=== PATIENT | female | born 1950 | race Caucasian/White ===

== ENCOUNTER 2017-08-22 14:44 | Observation (INO) | payer BC, MEDICARE ==
[2017-08-22] MEDS ORDERED: Ticagrelor 90 MG Tab PO ONE (14:51)
[2017-08-22] MEDS ORDERED: Famotidine 20 MG/2 ML SDV IVPUSH ONE (14:51)
[2017-08-22] MEDS ORDERED: Aspirin 81 MG Tab.Chew CHEW ONE (14:51)
--- NOTE | 2017-08-22 14:51 | EDM.PDOC ---
ED HPI GENERAL MEDICAL PROBLEM - General Chief Complaint: Chest Pain Stated Complaint: chest pain Time Seen by Provider: 08/22/17 14:45 Source of Information: Reports: Patient, Family (), Old Records ([facility] chart/EMR) History Limitations: Reports: No Limitations - History of Present Illness INITIAL COMMENTS - FREE TEXT/NARRATIVE: The patient was brought to the emergency room via private automobile by her for evaluation of intermittent 8/10 left-sided chest pressure with radiation to the left shoulder and arm with symptoms present over the last week and usually occurring on a daily basis lasting for several hours. She also has intermittent 4/10 right upper quadrant abdominal pain during the same time. With symptoms improved with OTC Gas-X. She denies any abdominal pain at this time. The patient was briefly evaluated by her regular provider, Ever Henley PA-C, at the [facility] in [place], earlier this afternoon with EKG conducted in that clinic, however no other medications, treatment, etc. were conducted. The patient denies any heart flutter, dizziness, orthostasis, orthopnea, diaphoresis, paresthesias, recent decreased exercise tolerance, or any other anginal-type symptoms. No recent history of other abdominal pain, heartburn, nausea, diarrhea, melena, gross hematochezia, or any food intolerance , including fatty foods, etc.. The patient also denies any recent fever, cough, wheezing, dyspnea, etc.. Her blood pressure has been under moderate control recently. No history of recent headaches, visual changes, diplopia, change in mental status, or other change in neurological status. Her Accu-Cheks have been under somewhat moderate control with a.m. Accu-Cheks averaging in the 160s and p.m. Accu-Cheks in the 90s to 110s Onset: Gradual Duration: Intermittent Location: Reports: Chest, Abdomen, Upper Extremity, Left, Radiates to (As above) . Denies: Head, Face, Neck, Back, Upper Extremity, Right, Lower Extremity, Left , Lower Extremity, Right Quality: Reports: Pressure, Same as Previous Episode Severity: Moderate Improves with: Reports: None Worsens with: Reports: None Context: Reports: Other (As above) Associated Symptoms: Reports: Chest Pain. Denies: Confusion, Cough, Diaphoresis , Fever/Chills, Headaches, Loss of Appetite, Malaise, Nausea/Vomiting, Rash, Seizure, Shortness of Breath, Syncope, Weakness Treatments PATHOLOGY TECH: Reports: Other (see below) (None) chest pain Pain Score (Numeric/FACES): 4 (With earlier 8 pain as above) - Related Data Allergies Allergy/AdvReac Type Severity Reaction Status Date / Time adhesive tape Allergy Rash Verified 08/22/17 15:15 codeine Allergy Difficulty Verified 08/22/17 15:15 Breathing pesticide Allergy Anaphylactic Verified 08/22/17 15:15 Shock pravastatin Allergy Muscle Verified 08/22/17 15:15 Aches silver Allergy Rash Verified 08/22/17 15:15 [From Tegaderm AG Mesh] simvastatin Allergy Muscle Verified 08/22/17 15:15 Aches Veycqun-Ben-Hym Reductase Allergy Muscle Verified 08/22/17 15:15 Inhibitor Aches tegaderm Allergy Rash Uncoded 08/22/17 15:15 Home Meds: Home Meds Cholecalciferol (Vitamin D3) [D-2000] 2,000 unit PO QAM 06/07/17 [History] Fenofibrate [Fenofibrate] 160 mg PO QPM 06/07/17 [History] Insulin Aspart [NovoLOG] 5 unit SQ QPM 06/07/17 [History] Insulin Detemir [Levemir] 25 unit SQ BEDTIME 06/07/17 [History] Lactobacillus Acidophilus [Probiotic Acidophilus] 1 each PO QAM 06/07/17 [ History] Levothyroxine [Levothyroxine] 25 mcg PO QAM 06/07/17 [History] [place]-3/DHA/Epa/Fish Oil [[place] 3 500 Softgel] 1 each PO QAM 06/07/17 [History] Red Yeast Rice Extract [Red Yeast Rice] 30 gm MC QAM 06/07/17 [History] Vitamin B Complex [B Complex] 1 each PO QAM 06/07/17 [History] amLODIPine Besylate [Amlodipine Besylate] 10 mg PO BEDTIME 06/07/17 [History] metFORMIN HCl [Metformin HCl] 1 tab PO BID@0800,1800 06/07/17 [History] Aspirin [Halfprin] 81 mg PO QAM 08/22/17 [History] Non-Formulary Medication [NF Drug] 1 each PO DAILY@1200 08/22/17 [History] Ubidecarenone [Co Q-10] 100 mg PO QAM 08/22/17 [History] Past Medical History HEENT History: Reports: Cataract, Other (See Below). Denies: Allergic Rhinitis , Glaucoma, Hard of Hearing, Macular Degeneration, Retinal Detachment Other HEENT History: Reading glasses Cardiovascular History: Reports: Heart Murmur, High Cholesterol, Hypertension, Other (See Below). Denies: Afib, Aneurysm, Arrhythmia, Blood Clots/VTE/DVT, CAD , Cardiomyopathy, Heart Failure, NE, PVD, Syncope Other Cardiovascular History: Hyperlipidemia including severe hypertriglyceridemia secondary fatty liver. Intermittent benign functional murmur. Varicose veins Respiratory History: Reports: COPD, Intubation, Previous. Denies: Asthma, Intubation, Difficult, PE, Pneumothorax, Pulmonary Fibrosis, Sleep Apnea, TB Gastrointestinal History: Reports: Cholelithiasis, Other (See Below). Denies: Celiac Disease, Chronic Constipation, Chronic Diarrhea, Colon Polyp, Diverticulosis, Fecal Incontinence, Gastritis, GERD, GI Bleed, Hepatitis, Hiatal Hernia, Inflammatory Bowel Disease, Irritable Bowel Syndrome, Jaundice, Pancreatitis, PUD Other Gastrointestinal History: Fatty liver secondary to hyperlipidemia Genitourinary History: Reports: Urinary Incontinence. Denies: Acute Renal Failure, Chronic Renal Insuffiency, Renal Calculus, STD, UTI, Recurrent GEOGRAPHIC INFORMATION SYSTEMS MANAGER History: Reports: Endometriosis, , Other (See Below) (Elective SAB during first trimester with delivery at 26 weeks gestation with final with no problems with hypertension or gestational diabetes during her or delivery). Denies: Dysfunctional Uterine Bleeding, Fibroids : 3 Para: 1 LMP (Approximate): Menopausal (Menopause in her early 50s) Musculoskeletal History: Reports: Arthritis, Back Pain, Chronic, Fracture, Neck Pain, Chronic, Osteoarthritis, Osteoporosis, Other (See Below). Denies: Amputation, Gout, RA, SLE Other Musculoskeletal History: Left proximal femur fracture at age 13 not requiring surgery Neurological History: Reports: Neuropathy, Diabetic, Neuropathy, Peripheral. Denies: Cerebral Aneurysms, CVA, Headaches, Chronic, Migraines, MS, Parkinson's , Seizure, TIA Psychiatric History: Reports: ADHD, Addiction, Other (See Below). Denies: Abuse , Victim of, Anxiety, Depression, Psych Hospitalization(s), PTSD, Suicide Attempt, Suicidal Ideation Other Psychiatric History: Previous tobacco, alcohol, and illicit drug use as below Endocrine/Metabolic History: Reports: Diabetes, Type II, Hypothyroidism, IDDM, Osteopenia, Osteoporosis. Denies: Diabetes, Type I, Diabetes Mellitus, Type 3c Hematologic History: Reports: None. Denies: Anemia, Blood Transfusion(s), Iron Deficiency Immunologic History: Reports: None. Denies: AIDS, HIV, SLE Oncologic (Cancer) History: Reports: Breast, Malignant Melanoma, Other (See Below). Denies: Basal Cell Carcinoma, Hodgkin's Lymphoma, Leukemia, Lymphoma, Metastatic, Non-Hodgkin's Lymphoma, Ovarian, Squamous Cell Carcinoma, Uterine Other Oncologic History: Right-sided stage I breast cancer in 2006 with subsequent radiation therapy. Melanoma of the left medial supra-labial region with excision as below Dermatologic History: Reports: Melanoma (As above). Denies: Eczema, Psoriasis - Infectious Disease History Infectious Disease History: Reports: Chicken Pox, Measles, Mumps (2). Denies: C-Difficile, Meningitis, Mononucleosis, MRSA, Pertussis (Whooping Cough), Rheumatic Fever, Rubella, Scarlet Fever, Shingles, TB, VRE - Past Surgical History Head Surgeries/Procedures: Reports: None HEENT Surgical History: Reports: Cataract Surgery, Oral Surgery, Tonsillectomy, Other (See Below). Denies: Adenoidectomy, Laser Surgery, LASIK, Naso-Sinus Surgery Other HEENT Surgeries/Procedures: Tonsillectomy at age 19. Bilateral cataract surgery in about 2008 Cardiovascular Surgical History: Reports: None. Denies: Varicose Respiratory Surgical History: Reports: None. Denies: Thoracentesis GI Surgical History: Reports: Cholecystectomy, Other (See Below). Denies: Appendectomy, Colon, EGD, Hernia, Abdominal, Hernia, Inguinal, Hernia Repair/ Other Other GI Surgeries/Procedures: Laparoscopic cholecystectomy on 03/28/07 Female Surgical History: Reports: Breast Biopsy, D&C, Dilitation & Evacuation , Other (See Below). Denies: Hysterectomy, Oophorectomy, Salpingo-Oophorectomy , Tubal Ligation Other Female Surgeries/Procedures: D&C secondary to elective SABs 2 vessels above. Left-sided lumpectomy secondary to breast cancer in 2006 Endocrine Surgical History: Reports: None. Denies: Thyroid Biopsy Neurological Surgical History: Reports: None. Denies: C-Spine, Discectomy, Laminectomy, Lumbar Spine, Sacral Spine, Spinal Fusion, Vertebroplasty Musculoskeletal Surgical History: Reports: None. Denies: Arthroscopic Procedure , Carpal Tunnel, Ganglion Cyst, Joint Replacement, ORIF, Shoulder Surgery Oncologic Surgical History: Reports: Biopsy of Breast (As above), Lumpectomy ( As above) Dermatological Surgical History: Reports: None - Past Imaging History Past Imaging History: Reports: DEXA Scan (09/20/11), MRI (C-spine on 07/06/08), Ultrasound (Right upper quadrant on 03/15/07) Social & Family History - Family History HEENT: Reports: Macular Degeneration, Other (See Below). Denies: Glaucoma, Retinal Detachment Other HEENT Family History: Maternal aunt with macular degeneration Cardiac: Reports: CAD, Congenital Septal Defect, Heart Failure, High Cholesterol , Hypertension, NE, Stent, Other (See Below). Denies: Afib, Aneurysm, Arrhythmia, Blood Clots/VTE/DVT, Bypass, PVD/COD, Syncope Other Cardiac Family History: Father with unknown type of congenital heart defect with initial NE at age 36 and fatal NE and CHF at age 42 with no heart procedures performed. Sister with NE at age 61 with PTCA/stent 2. Hypertension in brother. Hyperlipidemia in brother and sister Respiratory: Reports: None. Denies: Asthma, COPD, PE, Pneumothorax, Sleep Apnea GI: Reports: None. Denies: Celiac Disease, Cholelithiasis, Colon Polyps, GERD, GI bleed, Hepatitis, Inflammatory Bowel Disease, Irritable Bowel Syndrome, Pancreatitis, PUD OBGYN: Reports: None. Denies: Dysfunctional uterine bleeding, Endometriosis, Fibroids Musculoskeletal: Reports: None. Denies: Arthritis, Gout, Osteoarthritis, RA, SLE Neurological: Reports: None. Denies: Alzheimers Disease, Cerebral Aneurysms, CVA, Dementia, Migraines, MS, Neuropathy, Diabetic, Neuropathy, Peripheral, Parkinson's, Seizure, TIA Psychiatric: Reports: None. Denies: Abuse, Victim of, ADD, ADHD, Anxiety, Depression, Psych Hospitalization(s), PTSD, Suicide Attempt Endocrine/Metabolic: Reports: Diabetes, type II, Other (See Below) Other Endocrine/Metabolic Family History: Brother and sister with diabetes mellitus Hematologic: Reports: None. Denies: Anemia, Transfusion Reaction Immunologic: Reports: None. Denies: AIDS, HIV, SLE Dermatologic: Reports: None. Denies: Angiodema, Eczema, Psoriasis Oncologic: Reports: Breast, Other (See Below). Denies: Cervix, Colon, Hodgkin' s Lymphoma, Leukemia, Lymphoma, Metastatic, Non-Hodgkin's Lymphoma, Ovarian, Skin, Uterine Other Oncologic Family History: Mother with fatal breast cancer at age 72 - Tobacco Use Smoking Status *Q: Former Smoker Tobacco Use Within Last Twelve Months: No Years of Tobacco use: 30 Packs/Tins Daily: 1 (She smoked between 12 packs per day with occasional cigar use between ages 19 and 49) Used Tobacco, but Quit: No Smoking Cessation Information Provided To Patient: No Second Hand Smoke Exposure: No Second Hand Smoke Education Provided: No - Caffeine Use Caffeine Use: Reports: Coffee (2 cups per day), Tea (6 glasses per day). Denies : Energy Drinks, Soda - Alcohol Use Alcohol Use History: Yes Days Per Week of Alcohol Use: 0 (Previous history of alcohol abuse with no treatment required) Alcohol Use in Last Twelve Months: No - Recreational Drug Use Recreational Drug Type: Reports: Amphetamines (Speed) (Between ages 19 and 25), Marijuana/Hashish (Usually on weekends between ages 19 and 33), Methamphetamine. Denies: Cocaine, Heroin, Inhalants (Glues, Solvents, Aerosols) , LSD (Acid), Morphine, Oxycodone Recreational Drug Route: Reports: Inhaled - Living Situation & Occupation Living situation: Reports: (1985, 1 child), with Family () Occupation: Retired (Various odd jobs. Retired at age 61) ED ROS GENERAL - Review of Systems Review Of Systems: See Below Constitutional: Reports: No Symptoms. Denies: Fever, Chills, Malaise, Weakness , Fatigue, Night Sweats, Diaphoresis, Decreased Appetite, Weight Loss, Weight Gain HEENT: Reports: Glasses. Denies: Contact Lenses, Dental Pain, Ear Discharge, Ear Pain, Eye Pain, Hearing Loss, Rhinitis, Sinus Problem, Throat Pain, Throat Swelling, Vertigo, Vision Change Respiratory: Reports: No Symptoms. Denies: Shortness of Breath, Wheezing, Pleuritic Chest Pain, Cough, Hemoptysis Cardiovascular: Reports: Chest Pain, Blood Pressure Problem. Denies: Claudication, Dyspnea on Exertion, Edema, Lightheadedness, Orthopnea, Palpitations, PND, Syncope Endocrine: Reports: High Glucose (Occasional). Denies: Fatigue GI/Abdominal: Reports: Abdominal Pain (Right upper quadrant as above). Denies: Anorexia, Black Stool, Bloody Stool, Constipation, Diarrhea, Decreased Appetite , Difficulty Swallowing, Distension, Flatus, Hematemesis, Hematochezia, Melena, Mucous in Stool, Nausea, Stool Incontinence, Vomiting : Reports: Incontinence. Denies: Discharge, Dysuria, Flank Pain, Frequency, Hematuria, Irregular Menses, Pain, Urgency, Urinary Retention Musculoskeletal: Reports: No Symptoms. Denies: Neck Pain, Shoulder Pain, Arm Pain, Back Pain, Leg Pain Skin: Reports: No Symptoms. Denies: Diaphoresis, Bruising, Wound Neurological: Reports: No Symptoms. Denies: Confusion, Dizziness, Headache, Numbness, Paresthesia, Seizure, Tingling, Weakness Psychiatric: Reports: No Symptoms. Denies: Agitation, Anxiety, Confusion, Depression, Hallucinations, Homicidal Ideation, Suicidal Ideation Hematologic/Lymphatic: Reports: No Symptoms Immunologic: Reports: No Symptoms ED EXAM, GENERAL - Physical Exam Exam: See Below Exam Limited By: No Limitations General Appearance: Alert, WD/WN, No Apparent Distress, Anxious (Mild) Eye Exam: Bilateral Eye: EOMI, Normal Fundi, Normal Inspection (No nystagmus), PERRL Ears: Normal External Exam, Normal Canal, Hearing Grossly Normal, Normal TMs Nose: Normal Inspection, Normal Mucosa, No Blood Throat/Mouth: Normal Lips. No: Normal Teeth (Complete dentures uppers and lowers), Normal Gums, Normal Oropharynx, Normal Voice, No Airway Compromise, Dysphagia, Perioral Cyanosis Head: Atraumatic, Normocephalic. No: Facial Swelling, Facial Tenderness, Sinus Tenderness Neck: Normal Inspection, Supple, Non-Tender, Full Range of Motion. No: Carotid Bruit, Lymphadenopathy (L), Lymphadenopathy (R), Thyromegaly Respiratory/Chest: No Respiratory Distress, Lungs Clear, Normal Breath Sounds, No Accessory Muscle Use, Chest Non-Tender. No: Pleural Rub, Retractions Cardiovascular: Normal Peripheral Pulses, Regular Rate, Rhythm, No Edema, No Gallop, No JVD, No Murmur, No Rub. No: Gallop/S3, Gallop/S4, Friction Rub Peripheral Pulses: 2+: Radial (L), Radial (R), Dorsalis Pedis (L), Dorsalis Pedis (R) GI/Abdominal: Normal Bowel Sounds, Soft, Non-Tender, No Organomegaly, No Distention, No Abnormal Bruit, No Mass, Pelvis Stable. No: Guarding (Female) Exam: Deferred Rectal (Female) Exam: Deferred Back Exam: Normal Inspection, Full Range of Motion. No: CVA Tenderness (L), CVA Tenderness (R), Muscle Spasm Extremities: Normal Inspection, Normal Range of Motion, Non-Tender, No Pedal Edema, Normal Capillary Refill. No: Enrico's Sign Neurological: Alert, Oriented, CN II-XII Intact, Normal Cognition, Normal Gait, Normal Reflexes (Negative Babinski's), No Motor/Sensory Deficits Psychiatric: Anxious (Borderline). No: Depressed Mood Skin Exam: Warm, Dry, Intact, Normal Color, No Rash. No: Diaphoretic, Wound/ Incision Lymphatic: No Adenopathy EKG INTERPRETATION EKG Date: 08/22/17 Time: 14:06 Rhythm: Other (Sinus bradycardia) Rate (Beats/Min): 54 [place]: Normal (Left cardiac) P-Wave: Present QRS: Wide (0.11 seconds representing probable repolarization changes with mild T -wave inversions in leads V1 and V2) ST-T: Other (As above) QT: Normal MT/PQ Interval: 0.13 seconds representing a short MT interval with no delta waves noted with extreme poor R-wave progression in the anterior leads Comparison: NA - No Prior EKG EKG Interpretation Comments: 1. Borderline anterior wall cardiac ischemia 2. Short MT interval 3. Repolarization changes 4. Sinus bradycardia Course - Vital Signs Last Recorded V/S: Last Vital Signs Temp 37.0 C 08/22/17 15:23 Pulse 62 08/22/17 16:31 Resp 20 08/22/17 16:31 BP 165/79 H 08/22/17 16:31 Pulse Ox 99 08/22/17 16:31 Vital Signs - 24 hr 08/22/17 08/22/17 08/22/17 14:51 15:23 15:40 Temperature [ 37.0 C 37.0 C Oral] Pulse, 61 64 63 Peripheral [ Left Pulse Oximetry] Respiratory 20 19 20 Rate Blood Pressure [Left Upper Arm ] Blood Pressure 192/74 H 163/96 H 161/94 H [Right Upper Arm] O2 Sat by Pulse 95 97 98 Oximetry O2 Sat by Pulse 97 Oximetry [ Nasal Cannula] 08/22/17 08/22/17 08/22/17 16:12 16:13 16:31 Temperature [ Oral] Pulse, 63 67 62 Peripheral [ Left Pulse Oximetry] Respiratory 22 H 18 20 Rate Blood Pressure 165/79 H [Left Upper Arm ] Blood Pressure 179/82 H 180/95 H [Right Upper Arm] O2 Sat by Pulse 99 99 99 Oximetry O2 Sat by Pulse Oximetry [ Nasal Cannula] - Orders/Labs/Meds Orders: Active Orders 24 hr Category Date Time Status Blood Glucose Check, Bedside [RC] STAT Care 08/22/17 16:35 Active Cardiac Monitoring [RC] . DIRECTED Care 08/22/17 14:51 Active Oxygen Therapy, ED [RC] CONTINUOUS Care 08/22/17 14:51 Active Peripheral IV Care [RC] . DIRECTED Care 08/22/17 14:51 Active Pulse Oximetry [RC] CONTINUOUS Care 08/22/17 14:51 Active Up With Assistance [RC] PFP Care 08/22/17 14:51 Active Vital Signs [RC] PFP Care 08/22/17 14:51 Active Nothing per Oral Now Diet [DIET] Diet 08/22/17 Breakfast Active Chest 1V Frontal [CR] Stat Exams 08/22/17 14:51 Taken Sodium Chloride 0.9% [Saline Flush] Med 08/22/17 14:51 Active 10 ml FLUSH ASDIRECTED PRN Obtain Past Medical Record [OM.PC] Urgent Oth 08/22/17 14:51 Active Peripheral IV Insertion Adult [OM.PC] Stat Oth 08/22/17 14:51 Ordered Resuscitation Status Stat Resus Stat 08/22/17 14:51 Ordered Medication Orders Sodium Chloride (Saline Flush) 10 ml FLUSH ASDIRECTED PRN PRN Reason: Keep Vein Open Last Admin: 08/22/17 15:22 Dose: 10 ml Labs: Laboratory Tests 08/22/17 08/22/17 08/22/17 Range/Units 15:00 15:00 15:00 WBC 6.0 (4.0-10.2) K/uL RBC 4.83 (3.77-5.09) M/uL Hgb 14.2 (11.7-15.5) g/dL Hct 42.5 (34.0-46.0) % MCV 88.0 (84.0-98.0) fL MCH 29.4 (28.2-33.3) pg MCHC 33.4 (31.7-36.0) g/dL RDW 13.7 (11.2-14.1) % Plt Count 273 (150-350) K/uL Neut % (Auto) 43.5 L (45.0-80.0) % Lymph % (Auto) 44.3 (10.0-50.0) % [place] % (Auto) 7.8 (2.0-14.0) % Eos % (Auto) 3.7 (0.0-5.0) % Baso % (Auto) 0.7 (0.0-2.0) % Neut # (Auto) 2.61 (1.40-7.00) K/uL Lymph # (Auto) 2.66 (0.50-3.50) K/uL [place] # (Auto) 0.47 (0.00-1.00) K/uL Eos # (Auto) 0.22 (0.00-0.50) K/uL Baso # (Auto) 0.04 (0.00-0.20) K/uL PT 11.2 (9.8-11.7) SEC INR 1.0 APTT 21.0 L (22.1-29.8) SEC D-Dimer, Quantitative < 100 (0-400) ng/mL Sodium (136-145) mmol/L Potassium (3.5-5.1) mmol/L Chloride (98-107) mmol/L Carbon Dioxide (21.0-32.0) mmol/L BUN (7-18) mg/dL Creatinine (0.51-1.17) mg/dL Est Cr Clr Drug Dosing mL/min Estimated GFR (MDRD) mL/min Glucose (74-106) mg/dL POC Glucose (65-110) mg/dl Lactic Acid (0.4-2.0) mmol/L Uric Acid (2.6-7.2) mg/dL Calcium (8.5-10.1) mg/dL Magnesium (1.8-2.4) mg/dL Total Bilirubin (0.2-1.0) mg/dL AST (15-37) U/L ALT (12-78) U/L Alkaline Phosphatase (46-116) IU/L Creatine Kinase (26-308) U/L Creatine Kinase Index (0.0-2.5) % CK-MB (CK-2) (0.00-3.60) ng/mL Troponin I (0.000-0.056) ng/mL NT-Pro-B Natriuret Pep (0-125) pg/mL Total Protein (6.4-8.2) g/dL Albumin (3.4-5.0) g/dL TSH, Ultra Sensitive (0.358-3.740) mIU/mL 08/22/17 08/22/17 08/22/17 Range/Units 15:00 15:00 16:42 WBC (4.0-10.2) K/uL RBC (3.77-5.09) M/uL Hgb (11.7-15.5) g/dL Hct (34.0-46.0) % MCV (84.0-98.0) fL MCH (28.2-33.3) pg MCHC (31.7-36.0) g/dL RDW (11.2-14.1) % Plt Count (150-350) K/uL Neut % (Auto) (45.0-80.0) % Lymph % (Auto) (10.0-50.0) % [place] % (Auto) (2.0-14.0) % Eos % (Auto) (0.0-5.0) % Baso % (Auto) (0.0-2.0) % Neut # (Auto) (1.40-7.00) K/uL Lymph # (Auto) (0.50-3.50) K/uL [place] # (Auto) (0.00-1.00) K/uL Eos # (Auto) (0.00-0.50) K/uL Baso # (Auto) (0.00-0.20) K/uL PT (9.8-11.7) SEC INR APTT (22.1-29.8) SEC D-Dimer, Quantitative (0-400) ng/mL Sodium 141 (136-145) mmol/L Potassium 4.0 (3.5-5.1) mmol/L Chloride 104 (98-107) mmol/L Carbon Dioxide 23.8 (21.0-32.0) mmol/L BUN 21 H (7-18) mg/dL Creatinine 0.70 (0.51-1.17) mg/dL Est Cr Clr Drug Dosing 79.75 mL/min Estimated GFR (MDRD) > 60 mL/min Glucose 100 (74-106) mg/dL POC Glucose 108 (65-110) mg/dl Lactic Acid 1.4 (0.4-2.0) mmol/L Uric Acid 4.1 (2.6-7.2) mg/dL Calcium 10.0 (8.5-10.1) mg/dL Magnesium 1.9 (1.8-2.4) mg/dL Total Bilirubin 0.4 (0.2-1.0) mg/dL AST 23 (15-37) U/L ALT 29 (12-78) U/L Alkaline Phosphatase 42 L (46-116) IU/L Creatine Kinase 94 (26-308) U/L Creatine Kinase Index 1.2 (0.0-2.5) % CK-MB (CK-2) 1.10 (0.00-3.60) ng/mL Troponin I 0.000 (0.000-0.056) ng/mL NT-Pro-B Natriuret Pep 49 (0-125) pg/mL Total Protein 8.5 H (6.4-8.2) g/dL Albumin 4.7 (3.4-5.0) g/dL TSH, Ultra Sensitive 2.574 (0.358-3.740) mIU/mL Accu-Chek prior to arrival 108 mg percent Meds: Medications Generic Name Dose Route Start Last Admin Trade Name Freq PRN Reason Stop Dose Admin Sodium Chloride 10 ml 08/22/17 14:51 08/22/17 15:22 Saline Flush FLUSH 10 ml ASDIRECTED PRN Administration Keep Vein Open Discontinued Medications Generic Name Dose Route Start Last Admin Trade Name Freq PRN Reason Stop Dose Admin Aspirin 324 mg 08/22/17 14:51 08/22/17 15:20 Aspirin CHEW 08/22/17 14:52 324 mg ONETIME ONE Administration Famotidine 40 mg 08/22/17 14:51 08/22/17 15:21 Pepcid IVPUSH 08/22/17 14:52 40 mg ONETIME ONE Administration Ticagrelor 180 mg 08/22/17 14:51 08/22/17 15:20 Brilinta PO 08/22/17 14:52 180 mg ONETIME ONE Administration - Radiology Interpretation Free Text/Narrative:: processing supervisor showed normal sinus rhythm with average heart rate in the 60s with no ectopy or arrhythmia Chest x-ray, portable, shows evidence of mild to moderate COPD changes with probable underlying mild pulmonary hypertension with mildly elevated right hemidiaphragm and somewhat prominent proximal aortic arch, however no cardiomegaly, CHF, pneumothorax, or pulmonary infiltrate Departure - Departure Time of Disposition: 16:50 Disposition: Refer to Observation Condition: Good Clinical Impression: Acute coronary syndrome, IDDM (insulin dependent diabetes mellitus), Hypothyroidism (acquired), Hyperproteinemia, Mixed anxiety depressive disorder Hypertension Qualifiers: Hypertension type: essential hypertension Qualified Code(s): I10 - Essential ( primary) hypertension Hyperlipidemia Qualifiers: Hyperlipidemia type: mixed hyperlipidemia Qualified Code(s): E78.2 - Mixed hyperlipidemia COPD (chronic obstructive pulmonary disease) Qualifiers: COPD type: emphysema Emphysema type: panlobular Qualified Code(s): J43.1 - Panlobular emphysema Referrals: Ever Henley PA [Primary Care Provider] - Forms: ED Department Discharge Care Plan Goals: See plan. - Problem List & Annotations (1) Acute coronary syndrome SNOMED Code(s): 300130930 Code(s): I24.9 - ACUTE ISCHEMIC HEART DISEASE, UNSPECIFIED Status: Acute Priority: High Current Visit: Yes Onset Date: ~08/16/17 Annotation/Comment :: Chest pain protocol initiated immediately upon patient's arrival to the emergency room. No significant chest pain at time of admission. Initiate standard rule out NE orders with cardiology consultation depending on her clinical course. Secondary to multiple risk factors including family history, IDDM, and hyperlipidemia a Cardiolite stress test on an outpatient basis is strongly advisable. Activity restrictions to be given at time of discharge. Dr. Duran assumes care in the a.m. (2) COPD (chronic obstructive pulmonary disease) SNOMED Code(s): 91085495 Code(s): J44.9 - CHRONIC OBSTRUCTIVE PULMONARY DISEASE, UNSPECIFIED Status : Chronic Priority: Medium Current Visit: Yes Annotation/Comment:: No recent fever or bronchitic type symptoms. Consider PFTs depending on her clinical course. Note previous history of tobacco use Qualifiers: COPD type: emphysema Emphysema type: panlobular Qualified Code(s): J43.1 - Panlobular emphysema (3) Hyperlipidemia SNOMED Code(s): 41813848 Code(s): E78.5 - HYPERLIPIDEMIA, UNSPECIFIED Status: Chronic Priority: Medium Current Visit: Yes Annotation/Comment:: Lipid panel to be conducted in the a.m. Qualifiers: Hyperlipidemia type: mixed hyperlipidemia Qualified Code(s): E78.2 - Mixed hyperlipidemia (4) Hyperproteinemia SNOMED Code(s): 77059500 Code(s): E88.09 - OTH DISORDERS OF PLASMA-PROTEIN METABOLISM, NEC Status: Acute Priority: Medium Current Visit: Yes Onset Date: 08/22/17 Annotation/Comment:: Observe for now with further workup depending on her clinical course (5) Hypertension SNOMED Code(s): 99854875 Code(s): I10 - ESSENTIAL (PRIMARY) HYPERTENSION Status: Chronic Priority : Medium Current Visit: Yes Annotation/Comment:: Blood Pressures currently under moderate control. Medication adjustment during this hospitalization. Qualifiers: Hypertension type: essential hypertension Qualified Code(s): I10 - Essential (primary) hypertension (6) Hypothyroidism (acquired) SNOMED Code(s): 994135741 Code(s): E03.9 - HYPOTHYROIDISM, UNSPECIFIED Status: Chronic Priority: Medium Current Visit: Yes Annotation/Comment:: TSH normal today (7) IDDM (insulin dependent diabetes mellitus) SNOMED Code(s): 47712651 Code(s): E11.9 - TYPE 2 DIABETES MELLITUS WITHOUT COMPLICATIONS; Z79.4 - CUSTODIAL (CURRENT) USE OF INSULIN Status: Chronic Priority: Medium Current Visit: Yes Annotation/Comment:: Glycosylated hemoglobin to be conducted in the a.m. with additional urine for microalbumin (8) Mixed anxiety depressive disorder SNOMED Code(s): 161070746 Code(s): F41.8 - OTHER SPECIFIED ANXIETY DISORDERS Status: Chronic Priority: Medium Current Visit: Yes Annotation/Comment:: Anxiety depression disorder based on today's evaluation. Continue to observe closely by her regular provider. Note previous history of tobacco, alcohol, and illicit drug use - Problem List Review Problem List Initiated/Reviewed/Updated: Yes - My Orders Last 24 Hours: My Active Orders 08/22/17 14:51 Cardiac Monitoring [RC] . DIRECTED Oxygen Therapy, ED [RC] CONTINUOUS Peripheral IV Care [RC] . DIRECTED Pulse Oximetry [RC] CONTINUOUS Up With Assistance [RC] PFP Vital Signs [RC] PFP Chest 1V Frontal [CR] Stat Sodium Chloride 0.9% [Saline Flush] 10 ml FLUSH ASDIRECTED PRN Obtain Past Medical Record [OM.PC] Urgent Peripheral IV Insertion Adult [OM.PC] Stat Resuscitation Status Stat 08/22/17 16:35 Blood Glucose Check, Bedside [RC] STAT 08/22/17 Breakfast Nothing per Oral Now Diet [DIET] - Assessment/Plan Admission H&P: Please use this note as an admission H&P Last 24 Hours: My Active Orders 08/22/17 14:51 Cardiac Monitoring [RC] . DIRECTED Oxygen Therapy, ED [RC] CONTINUOUS Peripheral IV Care [RC] . DIRECTED Pulse Oximetry [RC] CONTINUOUS Up With Assistance [RC] PFP Vital Signs [RC] PFP Chest 1V Frontal [CR] Stat Sodium Chloride 0.9% [Saline Flush] 10 ml FLUSH ASDIRECTED PRN Obtain Past Medical Record [OM.PC] Urgent Peripheral IV Insertion Adult [OM.PC] Stat Resuscitation Status Stat 08/22/17 16:35 Blood Glucose Check, Bedside [RC] STAT 08/22/17 Breakfast Nothing per Oral Now Diet [DIET] Assessment:: As above Plan: As above. Extensive precautions were given to the patient and her , who are in agreement with the treatment plan. The patient's condition is stable enough for observation status and general supervision. Kevon Duran M.D., at the [facility], assumes care in the a.m.. She would benefit from update of her routine preventive health care, including colonoscopy, etc. once her cardiac status has been determined.
[2017-08-22] MEDS: Sodium Chloride 0.9% 10 ML Syringe FLUSH PRN ×2 (15:22→19:35)
[2017-08-22 15:49] LABS: CHLORIDE,CL 104 mmol/L (98-107); SODIUM,NA 141 mmol/L (136-145)
[2017-08-22] MEDS ORDERED: Fenofibrate,Micronized 134 MG Cap PO SCH (18:00)
[2017-08-22] MEDS ORDERED: Sodium Chloride 0.9% 10 ML Syringe FLUSH PRN (18:34)
[2017-08-22] MEDS ORDERED: Acetaminophen 325 MG Tab PO PRN (18:34)
[2017-08-22] MEDS ORDERED: Temazepam 15 MG Cap PO PRN (18:34)
[2017-08-22] MEDS ORDERED: Nitroglycerin 0.4 MG Tab.SL SL STA (19:19)
[2017-08-22] MEDS ORDERED: fentaNYL 100 MCG/2 ML SDV IVPUSH ONE (19:20)
[2017-08-22] MEDS ORDERED: Ondansetron 4 MG/2 ML SDV IVPUSH ONE (19:20)
[2017-08-22] MEDS: Lisinopril 10 MG Tab PO SCH (19:48)
[2017-08-22] MEDS: metFORMIN 500 MG Tab PO SCH (19:48)
[2017-08-22] MEDS: Nitroglycerin 2% Oint 1 GM UD Packet TOP SCH (19:49)
[2017-08-22] MEDS ORDERED: amLODIPine 5 MG Tab PO SCH (20:00)
[2017-08-23] MEDS: Nitroglycerin 2% Oint 1 GM UD Packet TOP SCH ×2 (00:35→08:21)
[2017-08-23 07:46] LABS: CHLORIDE,CL 104 mmol/L (98-107); SODIUM,NA 140 mmol/L (136-145)
[2017-08-23] MEDS ORDERED: Ondansetron 4 MG/2 ML SDV IVPUSH PRN (07:46)
[2017-08-23] MEDS ORDERED: Aspirin 81 MG Tab.EC PO SCH (08:00)
[2017-08-23] MEDS ORDERED: Levothyroxine 25 MCG Tab PO SCH (08:00)
[2017-08-23] MEDS: Sodium Chloride 0.9% 10 ML Syringe FLUSH PRN (08:21)
[2017-08-23] MEDS: metFORMIN 500 MG Tab PO SCH (08:29)
[2017-08-23] MEDS: Lisinopril 10 MG Tab PO SCH (08:30)
--- NOTE | 2017-08-23 10:18 | PCM.DCSUM1 ---
Discharge Summary - Hospital Course Free Text/Narrative:: Patient is a 67-year-old female who was admitted with chest pain and left shoulder pain felt like a burning sensation and is consistent troponins 3 were negative at this time she has hyperlipidemia we will go ahead and treat we will go ahead and schedule her for a cardiac stress test and follow her up 2 weeks - Discharge Data Discharge Date: 08/23/17 Discharge Disposition: Home, Self-Care 01 Condition: Stable - Discharge Diagnosis/Problem(s) (1) Chest pain not due to acute coronary syndrome SNOMED Code(s): 56118820 ICD Code: R07.89 - OTHER CHEST PAIN Status: Acute Priority: High Current Visit: Yes (2) Chest pain of unknown etiology SNOMED Code(s): 05483107 ICD Code: R07.89 - OTHER CHEST PAIN Status: Acute Current Visit: Yes Problem Details: At this time I feel that this is not coronary in nature but due to the fact that she has radiation to the left shoulder I will go ahead and do a cardiac stress test patient has burning sensation in arm and chest but no signs of shingles he did have the shingles vaccine (3) Hyperlipidemia SNOMED Code(s): 66626826 ICD Code: E78.5 - HYPERLIPIDEMIA, UNSPECIFIED Status: Chronic Priority: Medium Current Visit: Yes Problem Details: Lipid panel to be conducted in the a.m. Qualifiers: Hyperlipidemia type: mixed hyperlipidemia Qualified Code(s): E78.2 - Mixed hyperlipidemia - Patient Instructions Diet: Heart Healthy Diet Driving: Do Not Drive Showering/Bathing: May Shower Notify Provider of: Fever, Increased Pain, Nausea and/or Vomiting - Discharge Plan Home Medications: Home Meds Cholecalciferol (Vitamin D3) [D-2000] 2,000 unit PO QAM 06/07/17 [History] Fenofibrate [Fenofibrate] 160 mg PO QPM 06/07/17 [History] Insulin Aspart [NovoLOG] 5 unit SQ QPM 06/07/17 [History] Insulin Detemir [Levemir] 25 unit SQ BEDTIME 06/07/17 [History] Lactobacillus Acidophilus [Probiotic Acidophilus] 1 each PO QAM 06/07/17 [ History] Levothyroxine [Levothyroxine] 25 mcg PO QAM 06/07/17 [History] [place]-3/DHA/Epa/Fish Oil [[place] 3 500 Softgel] 1 each PO QAM 06/07/17 [History] Red Yeast Rice Extract [Red Yeast Rice] 30 gm MC QAM 06/07/17 [History] Vitamin B Complex [B Complex] 1 each PO QAM 06/07/17 [History] amLODIPine Besylate [Amlodipine Besylate] 10 mg PO BEDTIME 06/07/17 [History] metFORMIN HCl [Metformin HCl] 1 tab PO BID@0800,1800 06/07/17 [History] Aspirin [Halfprin] 81 mg PO QAM 08/22/17 [History] Non-Formulary Medication [NF Drug] 1 each PO DAILY@1200 08/22/17 [History] Ubidecarenone [Co Q-10] 100 mg PO QAM 08/22/17 [History] Patient Handouts: Ondansetron injection, Ticagrelor oral tablet, Nitroglycerin skin ointment, Famotidine injection, Nonspecific Chest Pain, [id number]-Cruv, Fentanyl injection, Lisinopril tablets, Amlodipine tablets, Nitroglycerin sublingual tablets Forms: ED Department Discharge Referrals: Ever Henley PA [Primary Care Provider] - - Patient Data Vitals - Most Recent: Last Vital Signs Temp 97.2 F 08/23/17 04:00 Pulse 54 L 08/23/17 04:00 Resp 16 08/23/17 04:00 BP 138/79 08/23/17 08:30 Pulse Ox 98 08/23/17 04:00 Weight - Most Recent: 176 lb 3 oz I&O - Last 24 hours: Intake & Output 08/22/17 08/23/17 08/23/17 22:59 06:59 14:59 Intake Total 620 100 200 Output Total 450 Balance 620 -350 200 Lab Results - Last 24 hrs: Laboratory Results - last 24 hr 08/22/17 08/23/17 08/23/17 Range/Units 21:10 07:00 07:00 WBC 10.5 H (4.0-10.2) K/uL RBC 4.76 (3.77-5.09) M/uL Hgb 14.2 (11.7-15.5) g/dL Hct 42.1 (34.0-46.0) % MCV 88.4 (84.0-98.0) fL MCH 29.8 (28.2-33.3) pg MCHC 33.7 (31.7-36.0) g/dL RDW 13.6 (11.2-14.1) % Plt Count 337 (150-350) K/uL Neut % (Auto) 80.1 H (45.0-80.0) % Lymph % (Auto) 13.9 (10.0-50.0) % [place] % (Auto) 4.7 (2.0-14.0) % Eos % (Auto) 1.1 (0.0-5.0) % Baso % (Auto) 0.2 (0.0-2.0) % Neut # (Auto) 8.38 H (1.40-7.00) K/uL Lymph # (Auto) 1.45 (0.50-3.50) K/uL [place] # (Auto) 0.49 (0.00-1.00) K/uL Eos # (Auto) 0.11 (0.00-0.50) K/uL Baso # (Auto) 0.02 (0.00-0.20) K/uL Sodium 140 (136-145) mmol/L Potassium 4.1 (3.5-5.1) mmol/L Chloride 104 (98-107) mmol/L Carbon Dioxide 24.0 (21.0-32.0) mmol/L BUN 26 H (7-18) mg/dL Creatinine 0.84 (0.51-1.17) mg/dL Est Cr Clr Drug Dosing 66.46 mL/min Estimated GFR (MDRD) > 60 mL/min Glucose 132 H (74-106) mg/dL POC Glucose (65-110) mg/dl Hemoglobin A1c (4.3-5.7) % Calcium 9.8 (8.5-10.1) mg/dL Total Bilirubin 0.5 (0.2-1.0) mg/dL AST 20 (15-37) U/L ALT 25 (12-78) U/L Alkaline Phosphatase 39 L (46-116) IU/L Creatine Kinase 77 67 (26-308) U/L Creatine Kinase Index 1.3 1.3 (0.0-2.5) % CK-MB (CK-2) 1.00 0.90 (0.00-3.60) ng/mL Troponin I 0.000 0.000 (0.000-0.056) ng/mL Total Protein 7.6 (6.4-8.2) g/dL Albumin 4.1 (3.4-5.0) g/dL Triglycerides 186 H (30-150) mg/dL Cholesterol 209 H (100-200) mg/dL LDL Cholesterol, Calc 123 H (0-100) mg/dL HDL Cholesterol 49 (40-60) mg/dL Amylase (25-115) U/L Lipase (73-393) U/L 08/23/17 08/23/17 08/23/17 Range/Units 07:00 07:00 07:36 WBC (4.0-10.2) K/uL RBC (3.77-5.09) M/uL Hgb (11.7-15.5) g/dL Hct (34.0-46.0) % MCV (84.0-98.0) fL MCH (28.2-33.3) pg MCHC (31.7-36.0) g/dL RDW (11.2-14.1) % Plt Count (150-350) K/uL Neut % (Auto) (45.0-80.0) % Lymph % (Auto) (10.0-50.0) % [place] % (Auto) (2.0-14.0) % Eos % (Auto) (0.0-5.0) % Baso % (Auto) (0.0-2.0) % Neut # (Auto) (1.40-7.00) K/uL Lymph # (Auto) (0.50-3.50) K/uL [place] # (Auto) (0.00-1.00) K/uL Eos # (Auto) (0.00-0.50) K/uL Baso # (Auto) (0.00-0.20) K/uL Sodium (136-145) mmol/L Potassium (3.5-5.1) mmol/L Chloride (98-107) mmol/L Carbon Dioxide (21.0-32.0) mmol/L BUN (7-18) mg/dL Creatinine (0.51-1.17) mg/dL Est Cr Clr Drug Dosing mL/min Estimated GFR (MDRD) mL/min Glucose (74-106) mg/dL POC Glucose 142 H (65-110) mg/dl Hemoglobin A1c 7.6 H (4.3-5.7) % Calcium (8.5-10.1) mg/dL Total Bilirubin (0.2-1.0) mg/dL AST (15-37) U/L ALT (12-78) U/L Alkaline Phosphatase (46-116) IU/L Creatine Kinase (26-308) U/L Creatine Kinase Index (0.0-2.5) % CK-MB (CK-2) (0.00-3.60) ng/mL Troponin I (0.000-0.056) ng/mL Total Protein (6.4-8.2) g/dL Albumin (3.4-5.0) g/dL Triglycerides (30-150) mg/dL Cholesterol (100-200) mg/dL LDL Cholesterol, Calc (0-100) mg/dL HDL Cholesterol (40-60) mg/dL Amylase 76 (25-115) U/L Lipase 372 (73-393) U/L Med Orders - Current: Current Medications Acetaminophen (Tylenol) 650 mg PO Q4H PRN PRN Reason: Pain Amlodipine Besylate (Norvasc) 10 mg PO BEDTIME [facility] Last Admin: 08/22/17 19:49 Dose: 10 mg Aspirin (Halfprin) 81 mg PO QAM [facility] Last Admin: 08/23/17 08:29 Dose: 81 mg Coenzyme Q10 (Coenzyme Q10) 100 mg PO BID [facility] Last Admin: 08/23/17 08:29 Dose: 100 mg Fenofibrate (Fenofibrate) 134 mg PO QPM [facility] Last Admin: 08/22/17 19:47 Dose: 134 mg Levothyroxine Sodium (Levothyroxine) 25 mcg PO QAM [facility] Last Admin: 08/23/17 08:30 Dose: 25 mcg Lisinopril (Prinivil) 10 mg PO BID [facility] Last Admin: 08/23/17 08:30 Dose: 10 mg Metformin HCl (Glucophage) 1,000 mg PO BID@0800,1800 [facility] Last Admin: 08/23/17 08:29 Dose: 1,000 mg Nitroglycerin (Nitrostat) 0.4 mg SL ONETIME STA Stop: 08/23/17 19:20 Last Admin: 08/22/17 19:34 Dose: 0.4 mg Nitroglycerin (Nitro-Bid 2%) 0.5 gm TOP Q6H [facility] Last Admin: 08/23/17 08:21 Dose: 0.5 gm Ondansetron HCl (Zofran) 4 mg IVPUSH Q6H PRN PRN Reason: Nausea/Vomiting Last Admin: 08/23/17 08:21 Dose: 4 mg Sodium Chloride (Saline Flush) 10 ml FLUSH ASDIRECTED PRN PRN Reason: Keep Vein Open Last Admin: 08/23/17 08:21 Dose: 10 ml Sodium Chloride (Saline Flush) 10 ml FLUSH Q12HR PRN PRN Reason: Keep Vein Open Temazepam (Restoril) 15 mg PO BEDTIME PRN PRN Reason: Insomnia Discontinued Medications Amlodipine Besylate (Norvasc) 10 mg PO BEDTIME [facility] Aspirin (Aspirin) 324 mg CHEW ONETIME ONE Stop: 08/22/17 14:52 Last Admin: 08/22/17 15:20 Dose: 324 mg Coenzyme Q10 (Coenzyme Q10) 100 mg PO QAM [facility] Famotidine (Pepcid) 40 mg IVPUSH ONETIME ONE Stop: 08/22/17 14:52 Last Admin: 08/22/17 15:21 Dose: 40 mg Fentanyl (Sublimaze) 100 mcg IVPUSH ONETIME ONE Stop: 08/22/17 19:21 Last Admin: 08/22/17 19:33 Dose: 100 mcg Non-Formulary Medication (Nf Drug) 1 each PO DAILY@1200 [facility] Ondansetron HCl (Zofran) 4 mg IVPUSH ONETIME ONE Stop: 08/22/17 19:21 Last Admin: 08/22/17 19:33 Dose: 4 mg Ticagrelor (Brilinta) 180 mg PO ONETIME ONE Stop: 08/22/17 14:52 Last Admin: 08/22/17 15:20 Dose: 180 mg - Exam General: Reports: Alert, Oriented HEENT: Reports: Pupils Equal, Pupils Reactive, EOMI, Mucous Membr. Moist/[place] Neck: Reports: Supple Lungs: Reports: Clear to Auscultation, Normal Respiratory Effort Cardiovascular: Reports: Regular Rate, Regular Rhythm GI/Abdominal Exam: Normal Bowel Sounds, Soft, Non-Tender, No Organomegaly, No Distention, No Abnormal Bruit, No Mass, Pelvis Stable (Female) Exam: Deferred Rectal (Female) Exam: Deferred Back Exam: Reports: Normal Inspection, Full Range of Motion Extremities: Normal Inspection, Normal Range of Motion, Non-Tender, No Pedal Edema, Normal Capillary Refill Skin: Reports: Warm, Dry, Intact Neurological: Reports: No New Focal Deficit Psy/Mental Status: Reports: Alert, Normal Affect, Normal Mood *Q Meaningful Use (DIS) - VTE *Q VTE Criteria *Q: - Stroke *Q Stroke Criteria *Q: - AMI *Q AMI Criteria *Q:
[2017-08-23] MEDS ORDERED: Non-Formulary Medication 1 Each PO SCH (12:00)
[2017-08-23] MEDS ORDERED: amLODIPine 5 MG Tab PO SCH (20:00)
== END 2017-08-23 12:50 | disposition home or self-care (01) ==
LOC: LL.ED 14:44 → LL.MS 17:19
PROVIDERS: ADMIT Family Medicine; ATTEND Family Medicine
DX: R07.89 Other chest pain (principal); E78.2 Mixed hyperlipidemia; Z79.4 Long term (current) use of insulin; Z79.82 Long term (current) use of aspirin; Z79.899 Other long term (current) drug therapy; Z88.8 Allergy status to other drugs, medicaments and biological substances; Z91.09 Other allergy status, other than to drugs and biological substances
CPT/HCPCS: 36415; 71045; 71046; 74018; 80053; 80061; 82150; 82550; 82553; 82962; 83036; 83605; 83690; 83735; 83880; 84443; 84484; 84550; 85025; 85379; 85610; 85730; 93005; 96374; 96375; 96376; 99285; A9270; G0378; J2405; J3010; J7050; S0028